=== PATIENT | female | born 1980 | race African-American/Black ===

== ENCOUNTER 2021-05-02 10:51 | Outpatient (REF) | payer OTHER, SELFPAY ==
[2021-05-02 11:05] LABS: MANUAL DIFF FLAG NO
[2021-05-02 11:12] LABS: Basophils Percent Auto 0.5 % (0-2); Eosinophils Absolute Auto 0.2 X10*3/uL (0.0-0.4); Eosinophils Percent Auto 4.2 % (0-4); Hemoglobin 9.4 g/dl (12.0-16.0); Lymphocytes Absolute Auto 1.3 X10*3/uL (1.2-4.9); Lymphocytes Percent Auto 33.9 % (20-40); Mean Corpuscular HGB Conc 30.3 g/dl (31.0-35.0); Mean Corpuscular Hemoglobin 25.5 pg (27.0-33.0); Mean Corpuscular Volume 84.2 fL (80.0-98.0); Mean Platelet Volume 8.8 fL (9.4-12.3); Monocytes Absolute Auto 0.4 X10*3/uL (0.1-1.2); Monocytes Percent Auto 11.5 % (2-11); Neutrophils Absolute Auto 1.9 x10*3/uL (2.0-8.3); Neutrophils Percent Auto 49.9 % (45-73); Platelet Count 264 X10*3/uL (160-400); Red Blood Count 3.68 X10*6/uL (4.20-5.50); Red Cell Distribution Width 14.8 % (11.0-16.0); White Blood Count 3.8 X10*3/uL (4.8-10.8)
[2021-05-02 11:55] LABS: Appearance Urine CLEAR; Color Urine YELLOW; Glucose Urine UA NEG (NEG); Leukocyte Esterase Urine NEG (NEG); Nitrite Urine NEG (NEG); UACC Culture Trigger NO; Urine Blood TRACE (NEG); Urine Ketones NEG (NEG); Urine Protein NEG (NEG-TRACE)
[2021-05-02 12:12] LABS: Alanine Aminotransferase 11 U/L (0-31); Alkaline Phosphatase 73 U/L (39-117); Anion Gap 11 (12-20); Aspartate Amino Transferase 18 U/L (5-31); Bilirubin Total 0.4 mg/dL (0.0-1.0); Blood Urea Nitrogen 7 mg/dL (9-16); Calcium 8.9 mg/dL (8.4-10.2); Carbon Dioxide 26 mmol/L (22-29); Chloride 104 mmol/L (96-108); Cholesterol 209 mg/dL; Estimated Glomerular Filt Rate > 60; Glucose Fasting 92 mg/dL (60-99); HDL Cholesterol 71 mg/dL; LDL Cholesterol Calculated 131 mg/dl; Sodium 137 mmol/L (135-145); Total Protein 7.6 g/dL (6.5-8.0); Triglycerides 39 mg/dL
[2021-05-02 12:27] LABS: Squamous Epithelial Cell Urine 1+ /LPF
[2021-05-02 12:28] LABS: WBC Urine 0-2 /HPF (0-4)
[2021-05-02 12:29] LABS: TSH reflex Free T4 0.69 uIU/mL (0.32-4.0); Vitamin D 25-OH Total 24.4 ng/mL (>30)
[2021-05-02 12:30] LABS: Bacteria Urine TRACE /LPF; RBC Urine 0 /HPF (0)
== END 2021-05-02 10:52 | disposition home or self-care (01) ==
LOC: HO.LAB 10:51
PROVIDERS: Visit Provider Internal Medicine
DX: Z00.00 Encounter for general adult medical examination without abnormal findings (principal); R10.9 Unspecified abdominal pain; E78.00 Pure hypercholesterolemia, unspecified; E55.9 Vitamin D deficiency, unspecified
CPT/HCPCS: 36415; 80053; 80061; 81001; 81003; 82306; 84443; 85025

== ENCOUNTER 2021-05-15 09:55 | Outpatient (REF) | payer OTHER, SELFPAY ==
--- NOTE | ~2021-05-15 | US_ITS ---
EXAMINATION: US PELVIS CLINICAL INFORMATION: Unspecified pain. History fibroids. COMPARISON: Pelvic ultrasound 08/19/2014. TECHNIQUE: Ultrasound of the pelvis is performed using both transabdominal and transvaginal transducers along with Doppler. Transvaginal imaging is performed due to inadequate visualization transabdominally. FINDINGS: Uterus: The uterus is anteverted and enlarged measuring 11.2 x 5.4 x 7.6 cm. Volume 239 mL. Prior measurements 9.0 x 4.0 x 5.1 cm, ultrasound 2015. Volume 94 mL. The double wall endometrial thickness is within normal, measuring 14 mm. The uterus is lobulated in contour and heterogeneous with multiple fibroids, increased in size and number from prior ultrasound 2015. The largest 3 fibroids are as follows: Fundal intramural and subserous measuring 4.4 x 4.2 cm. Right body intramural subserous measuring 3.8 x 3.3 cm. Lower uterine segment and upper cervix measuring 4.8 x 3.9 cm. In addition, there is scattered venetian blind shadowing throughout the uterus which may be associated with underlying adenomyosis. Adnexa: Both ovaries are visualized. There is normal color flow to the adnexa. There is no ovarian torsion. There is trace physiologic fluid adjacent to left ovary. No overt ascites. Right ovary measures 3.0 x 1.6 x 2.3 cm. Left ovary measures 2.5 x 1.7 x 2.0 cm. US/US pelvic complete IMPRESSION: 1. Uterine enlargement secondary to multiple fibroids, largest three are 4.8 cm, 4.4 cm, and 3.8 cm. Suspect underlying adenomyosis. 2. No adnexal mass. Trace physiologic fluid left pelvis. No overt ascites.
--- NOTE | ~2021-05-15 | US_ITS ---
EXAMINATION: US ABDOMEN COMPLETE CLINICAL INFORMATION: Unspecified abdominal pain. COMPARISON: None TECHNIQUE: Real-time imaging of the abdominal viscera. FINDINGS: PANCREAS: Normal in size and contour and echogenicity. No pancreatic ductal distention or retroperitoneal effusion. ABDOMINAL AORTA: The proximal, mid, and distal segments are normal in caliber. INFERIOR VENA CAVA: Visualized portions are normal. LIVER: Normal. The liver is normal in size. The liver contour is normal. Parenchymal echogenicity is normal. No focal hepatic lesion. There is no intrahepatic biliary duct dilatation seen. GALLBLADDER: Normal. The gallbladder is physiologically distended without evidence of stones, sludge, polyps, wall thickening or pericholecystic fluid. COMMON BILE DUCT: Normal in caliber measuring 0.3 cm in diameter. RIGHT KIDNEY: Normal. No hydronephrosis. No renal calculi or focal parenchymal lesions. The kidney measures 8.7 cm in maximum dimension. LEFT KIDNEY: Normal. No hydronephrosis. No renal calculi or focal parenchymal lesions. The kidney measures 10.7 cm in maximum dimension. SPLEEN: Normal. The spleen measures 8.7 cm in maximum dimension. FREE FLUID: None. US/US abdomen complete IMPRESSION: Normal study.
== END 2021-05-15 09:56 | disposition home or self-care (01) ==
LOC: HO.HMGCX 09:55
PROVIDERS: PCP Internal Medicine; Visit Provider Internal Medicine
DX: R10.9 Unspecified abdominal pain (principal); N85.2 Hypertrophy of uterus; D25.9 Leiomyoma of uterus, unspecified
CPT/HCPCS: 76700; 76856

== ENCOUNTER 2021-09-06 08:44 | Outpatient (REF) | payer OTHER, SELFPAY ==
[2021-09-07 02:06] LABS: CT PCR DETECTED (Not Detect.); NG PCR NOT DETECTED (Not Detect.)
[2021-09-07 09:23] LABS: BV Int Neg Control Negative (Negative); BV Int Pos Control Positive (Positive)
[2021-09-11 19:31] LABS: HPV mRNA E6/E7 rflx Not Detected (Not Detected)
== END 2021-09-06 08:45 | disposition home or self-care (01) ==
LOC: HO.LAB 08:44
PROVIDERS: Visit Provider Advanced Practice Midwife
DX: Z01.411 Encounter for gynecological examination (general) (routine) with abnormal findings (principal); Z11.51 Encounter for screening for human papillomavirus (HPV); Z20.2 Contact with and (suspected) exposure to infections with a predominantly sexual mode of transmission; N89.8 Other specified noninflammatory disorders of vagina; N85.2 Hypertrophy of uterus; Z87.42 Personal history of other diseases of the female genital tract
CPT/HCPCS: 87480; 87491; 87510; 87591; 87624; 87660; 88142

== ENCOUNTER 2021-10-10 15:31 | Outpatient (REF) | payer OTHER, SELFPAY ==
--- NOTE | ~2021-10-10 | US_ITS ---
EXAMINATION: US PELVIS CLINICAL INFORMATION: History of fibroids COMPARISON: Previous dated 05/15/2021 TECHNIQUE: Ultrasound of the pelvis is performed using both transabdominal and transvaginal transducers along with Doppler. Transvaginal imaging is performed due to inadequate visualization transabdominally. FINDINGS: UTERUS: The uterus is measuring 9.7 x 6.5 x 8.5 cm. Anteverted, anteflexed. The endometrial thickness measured by the plastic molding operator at 9 mm. Once again multiple areas of fibroid change. In the lower uterine segment posterior, there is a 4.6 x 4.5 x 4.5 cm fibroid. Previously 3.9 x 3.9 x 4.8 cm. In the mid to distal uterine region, a 3.4 x 3.6 x 3.8 cm fibroid. This is not significantly changed from previous. In the fundal region anterior, there is a 5.0 x 4.4 x 3.7 cm fibroid. Previously 4.4 x 4.2 x 4.3 cm. Other smaller areas are seen and I suspect multiple other smaller fibroids These large fibroids emanate up to the endometrial canal and therefore a submucosal component cannot be excluded The right ovary is 3.4 x 2.2 x 2.2 cm. Volume 8 mL. Unremarkable. The left ovary is 2.9 x 2.4 x 2.3 cm. Volume 8 mL. There is a small associated cyst measuring 1.5 cm. No free fluid or obvious adnexal mass. US/US pelvic and transvaginal IMPRESSION: 1. Once again findings consistent with a fibroid uterus. 2. The largest are listed above. There appears to be some increase in size of the large lower uterine body posterior fibroid 3. Mild increase of the fundal fibroid. 4. As described submucosal component of these fibroids cannot be excluded as these I believe are abutting the endometrial canal.
== END 2021-10-10 15:32 | disposition home or self-care (01) ==
LOC: HO.HMGCX 15:31
PROVIDERS: Visit Provider Advanced Practice Midwife
DX: N85.2 Hypertrophy of uterus (principal); Z87.42 Personal history of other diseases of the female genital tract
CPT/HCPCS: 76830; 76856

== ENCOUNTER → 2021-10-22 09:47 | Outpatient (BNVA) | payer OTHER, SELFPAY | PROVIDERS: Visit Provider Advanced Practice Midwife | DX: Z13.89 Encounter for screening for other disorder (principal) ==

== ENCOUNTER 2021-12-25 09:52 | Outpatient (REF) | payer OTHER, SELFPAY ==
[2021-12-26 11:51] LABS: CT PCR NOT DETECTED (Not Detect.); NG PCR NOT DETECTED (Not Detect.)
[2021-12-26 14:18] LABS: BV Int Neg Control Negative (Negative); BV Int Pos Control Positive (Positive)
== END 2021-12-25 09:53 | disposition home or self-care (01) ==
LOC: HO.LAB 09:52
PROVIDERS: Visit Provider Advanced Practice Midwife
DX: Z30.09 Encounter for other general counseling and advice on contraception (principal); Z20.2 Contact with and (suspected) exposure to infections with a predominantly sexual mode of transmission
CPT/HCPCS: 87480; 87491; 87510; 87591; 87660; 99212

== ENCOUNTER 2022-05-18 07:52 | Outpatient (REF) | payer OTHER, SELFPAY ==
[2022-05-22 03:56] LABS: Syphilis Screen Nonreactive (Nonreactive)
[2022-05-22 04:39] LABS: HBsAGNum1 0.41 S/CO (0.00-0.99); HIV AB/AG Nonreactive (Nonreactive); Hepatitis B Surface Antigen Negative (Negative); ~HepC Num1 0.13 S/CO (0.00-0.79); ~Hepatitis C Antibody Nonreactive (Nonreactive)
== END 2022-05-18 07:53 | disposition home or self-care (01) ==
LOC: HO.HMGCLDS 07:52
PROVIDERS: PCP Internal Medicine; Visit Provider Advanced Practice Midwife
DX: Z11.4 Encounter for screening for human immunodeficiency virus [HIV] (principal); N89.8 Other specified noninflammatory disorders of vagina; Z20.2 Contact with and (suspected) exposure to infections with a predominantly sexual mode of transmission
CPT/HCPCS: 36415; 86780; 86803; 87340; 87389

== ENCOUNTER 2022-06-07 08:35 | Outpatient (REF) | payer OTHER, SELFPAY ==
[2022-06-07 11:21] LABS: MANUAL DIFF FLAG NO
[2022-06-07 11:34] LABS: Basophils Percent Auto 0.7 % (0-2); Eosinophils Absolute Auto 0.1 X10*3/uL (0.0-0.4); Eosinophils Percent Auto 1.1 % (0-4); Hemoglobin 8.3 g/dl (12.0-16.0); Lymphocytes Absolute Auto 1.9 X10*3/uL (1.2-4.9); Lymphocytes Percent Auto 43.1 % (20-40); Mean Corpuscular HGB Conc 28.6 g/dl (31.0-35.0); Mean Corpuscular Hemoglobin 21.4 pg (27.0-33.0); Mean Corpuscular Volume 74.9 fL (80.0-98.0); Mean Platelet Volume 9.6 fL (9.4-12.3); Monocytes Absolute Auto 0.4 X10*3/uL (0.1-1.2); Monocytes Percent Auto 9.4 % (2-11); Neutrophils Percent Auto 45.7 % (45-73); Platelet Count 387 X10*3/uL (160-400); Red Blood Count 3.87 X10*6/uL (4.20-5.50); Red Cell Distribution Width 16.9 % (11.0-16.0); White Blood Count 4.5 X10*3/uL (4.8-10.8)
[2022-06-07 12:30] LABS: Erythrocyte Sedimentation Rate 31 MM/HR (0-20); Troponin-I High Sensitivity < 3.5 ng/L (<3.5-17.0)
[2022-06-07 13:07] LABS: Alanine Aminotransferase 9 U/L (0-31); Alkaline Phosphatase 74 U/L (39-117); Anion Gap 13 (12-20); Aspartate Amino Transferase 17 U/L (5-31); Bilirubin Total 0.7 mg/dL (0.0-1.0); Blood Urea Nitrogen 10 mg/dL (9-16); Calcium 9.1 mg/dL (8.4-10.2); Carbon Dioxide 24 mmol/L (22-29); Chloride 106 mmol/L (96-108); Cholesterol 184 mg/dL; Estimated Glomerular Filt Rate > 60; Glucose Fasting 91 mg/dL (60-99); HDL Cholesterol 77 mg/dL; LDL Cholesterol Calculated 101 mg/dl; Potassium 4.1 mmol/L (3.3-5.1); Sodium 139 mmol/L (135-145); Total Protein 7.5 g/dL (6.5-8.0); Triglycerides 31 mg/dL
[2022-06-07 13:15] LABS: TSH reflex Free T4 0.61 uIU/mL (0.32-4.0); Vitamin D 25-OH Total 18.2 ng/mL (>30)
== END 2022-06-07 08:36 | disposition home or self-care (01) ==
LOC: HO.HMGCLDS 08:35
PROVIDERS: PCP Internal Medicine; Visit Provider Internal Medicine
DX: R55 Syncope and collapse (principal); E55.9 Vitamin D deficiency, unspecified; E78.00 Pure hypercholesterolemia, unspecified
CPT/HCPCS: 36415; 80053; 80061; 82306; 84443; 84484; 85025; 85652

== ENCOUNTER 2022-07-04 07:48 | Outpatient (REF) | payer OTHER, SELFPAY ==
--- NOTE | ~2022-07-04 | CT_ITS ---
EXAMINATION: CT HEAD WITHOUT CONTRAST CLINICAL INFORMATION: Syncope. COMPARISON: None TECHNIQUE: Contiguous axial imaging was performed from the skull base to vertex without intravenous administration of contrast. This CT examination was performed using dose optimization techniques as appropriate, variously including the following: *Automated exposure control *Adjustment of mA and/or kV according to patient size (this includes techniques or standardized protocols for targeted exams where dose is matched to indication/reason for exam; i.e. extremities or head) *Use of iterative reconstruction technique DLP: 690 mGy-cm FINDINGS: There is no evidence of an extra-axial collection. There is no evidence of intra or extra-axial hemorrhage. The ventricles and extra-axial CSF spaces are appropriate. Quinones-white matter differentiation is normal. No mass, mass effect or infarct is seen. No skull fracture. Small polyps or cysts in the bilateral maxillary sinuses. Visualized paranasal sinuses, mastoid air cells and middle ears are otherwise clear. CT/CT head/brain wo IV con IMPRESSION: Unremarkable exam.
--- NOTE | 2022-07-04 08:28 | CA_ITS ---
Transthoracic Echocardiogram Patient (Last, First, Middle): Ness Palmer, Gender: Female Date of : 1980 Age: 41 Procedure Date: 07/04/2022 Procedure Type: Transthoracic Echocardiogram Location: OP Height: 152.4 cm Weight: 56.7 kg BSA: 1.53 m2 Heart Rate: bpm BP: 106 / 80 mmHg Senior Interactive Developer: LEO Referring MD: Oscar Elizalde MD Manager Membership: Ko Barr MD Symptoms: R06.09 - Other forms of dyspnea Study Quality: Adequate ECG Rhythm: Sinus Conclusions: - Essentially normal study Findings Left Ventricle Normal left ventricular size, thickness, and systolic function. The visually estimated ejection fraction is between 55-60%. Diastolic function is normal for age. Peak GLS is -181.%, within normal limits Right Ventricle Normal right ventricular cavity size and systolic function. Atria Both atria are normal in size. Interatrial shunt cannot be excluded. Aortic Valve Normal aortic valve structure and function. There is no aortic valve stenosis. There is no aortic valve regurgitation. Mitral Valve Normal mitral valve structure and function. There is trace mitral valve regurgitation. There is no mitral valve stenosis. Pulmonic Valve The pulmonic valve is likely normal. Tricuspid Valve Normal tricuspid valve structure. There is trace tricuspid valve regurgitation. The right ventricular systolic pressure is normal. The right ventricular systolic pressure is 22 mmHg. Normal right atrial pressure. There is no evidence of pulmonary hypertension. Great Vessels All visible segments of the aorta are normal in size. The pulmonary artery was not well visualized. Venous The inferior vena cava is normal in size and collapses greater than 50% with inspiration. Pericardium/Pleural There is no evidence of pericardial effusion. Prior Study Comparison No prior study available for comparison. Recommendations, Care & Conclusions Recommend contrast study to evaluate intracardiac shunting. Measurements 2D Linear Measurements IVSd: 0.83 0.6-0.9/0.6-1.0 cm LVIDd: 4.23 3.9-5.3/4.2-5.9 cm LVIDd Index: 2.76 2.4-3.2/2.2-3.1 cm/m2 LVIDs: 2.85 2.0-3.6 cm LVPWd: 0.95 0.7-1.1 cm LA Diam: 2.20 2.7-3.8/3.0-4.0 cm LAIDs Index: 1.44 1.5-2.3 cm/m2 LV Mass: 147.05 67-162/88-224 g LV Mass Index: 96.11 43-95/49-115 g/m2 LVOT Diam: 1.80 3.0+(-)1.3 cm 2D Systolic Function EF 4C: 58.80 >55% EF 2C: 58.00 >55% EF BiP: 58.30 >55% Mitral Valve MV Pk E: 0.58 MV PK A: 0.51 MV Decel Time: 190.00 E/A: 1.10 E'Lateral: 15.40 E'Medial: 11.90 E/E' Med: 4.90 E/E' Lat: 3.80 PHT: 56.00 MVA PHT: 3.93 Decel [place]: 3.04 Aortic Valve AoV Pk Vu: 1.29 AoV Mn Vu: 0.95 AoV VTI: 0.29 AoV Pk Grad: 7.00 Aov Mn Grad: 4.00 TOMMY Cont.VTI: 1.83 LVOT LVOT Pk Vu: 0.94 LVOT Mn Vu: 0.64 LVOT VTI: 0.21 LVOT Pk Grad: 4.00 LVOT Mn Grad: 2.00 LVOT Diam: 1.80 LVOT Area: 2.54 Diastolic Function MV Pk E: 0.58 MV Pk A: 0.51 E/A: 1.10 E'Medial: 11.90 E/E' Med: 4.90 E' Laterial: 15.40 E/E' Lat: 3.80 Right Ventricle TAPSE (mm): 22.80 TVS' Vu: 11.60 Tricuspid Valve TR Pk Vu: 2.19 TR Pk Grad: 19.00 RA Press: 3.00 RVSP: 22.00 Great Vessels Aorta Sinus of Valsalva: 2.93 2.0-3.[address] [place]: 2.37 1.7-3.4 cm Ao Asc: 2.50 2.1-3.4 cm Updated in Other Vendor System with Status of Final Ko Barr MD electronically signed on 07/04/2022 9:48:23 AM with status of Final
== END 2022-07-04 07:49 | disposition home or self-care (01) ==
LOC: HO.CT 07:48
PROVIDERS: Visit Provider Internal Medicine
DX: R55 Syncope and collapse (principal); R06.09 Other forms of dyspnea
CPT/HCPCS: 70450; 93306; 93356

== ENCOUNTER → 2022-10-22 14:49 | Outpatient (BNVA) | payer OTHER, SELFPAY | PROVIDERS: PCP Internal Medicine; Visit Provider Psychiatry & Neurology Neurology | DX: G47.19 Other hypersomnia (principal); R55 Syncope and collapse | CPT/HCPCS: 99202 ==

== ENCOUNTER 2022-12-10 07:56 | Outpatient (REF) | payer OTHER, SELFPAY ==
--- NOTE | 2022-12-10 07:58 | EEG_ITS ---
This is a 16-channel EEG with an EKG lead. The patient is reported awake during the tracing. Background EEG rhythm is low amplitude fast to about 14 to 16 hertz 5 to 20 microvolt posteriorly and lower amplitude fast anteriorly. Photic stimulation is not performed. Hyperventilation is unremarkable. Cardiac lead does not reveal any significant abnormality. No sharp wave spikes or paroxysmal tendency noted. IMPRESSION: Unremarkable EEG. MD VICKI Goetz/ALICE / [phone]
== END 2022-12-10 07:57 | disposition home or self-care (01) ==
LOC: HO.NEURO 07:56
PROVIDERS: PCP Internal Medicine; Visit Provider Psychiatry & Neurology Neurology
DX: R55 Syncope and collapse (principal)
CPT/HCPCS: 95816

== ENCOUNTER → 2022-12-10 10:56 | Outpatient (REF) | payer OTHER, SELFPAY | LOC: HO.SL 10:56 | PROVIDERS: PCP Internal Medicine; Visit Provider Psychiatry & Neurology Neurology | DX: G47.19 Other hypersomnia (principal) | CPT/HCPCS: 95806 ==

== ENCOUNTER → 2022-12-10 11:11 | Outpatient (BNV) | payer OTHER, SELFPAY | PROVIDERS: PCP Internal Medicine; Visit Provider Psychiatry & Neurology Neurology | DX: G47.10 Hypersomnia, unspecified (principal); R06.83 Snoring | CPT/HCPCS: 95806 ==

== ENCOUNTER 2022-12-16 07:11 | Outpatient (REF) | payer OTHER, SELFPAY ==
[2022-12-16 11:56] LABS: Basophils Percent Auto 0.5 % (0-2); Eosinophils Absolute Auto 0.1 X10*3/uL (0.0-0.4); Eosinophils Percent Auto 1.2 % (0-4); Hematocrit 38.9 % (37.0-47.0); Hemoglobin 12.5 g/dl (12.0-16.0); Lymphocytes Absolute Auto 2.7 X10*3/uL (1.2-4.9); Lymphocytes Percent Auto 62.4 % (20-40); Mean Corpuscular HGB Conc 32.1 g/dl (31.0-35.0); Mean Corpuscular Hemoglobin 30.8 pg (27.0-33.0); Mean Corpuscular Volume 95.8 fL (80.0-98.0); Mean Platelet Volume 10.3 fL (9.4-12.3); Monocytes Absolute Auto 0.4 X10*3/uL (0.1-1.2); Monocytes Percent Auto 8.8 % (2-11); Neutrophils Absolute Auto 1.2 x10*3/uL (2.0-8.3); Neutrophils Percent Auto 27.1 % (45-73); Platelet Count 233 X10*3/uL (160-400); Red Blood Count 4.06 X10*6/uL (4.20-5.50); Red Cell Distribution Width 11.6 % (11.0-16.0); White Blood Count 4.3 X10*3/uL (4.8-10.8)
[2022-12-16 11:58] LABS: MANUAL DIFF FLAG SCAN
[2022-12-16 12:21] LABS: Alanine Aminotransferase 9 U/L (0-31); Albumin Level 3.8 g/dL (3.5-5.0); Alkaline Phosphatase 62 U/L (39-117); Anion Gap 14 (12-20); Aspartate Amino Transferase 15 U/L (5-31); Bilirubin Total 0.6 mg/dL (0.0-1.0); Blood Urea Nitrogen 8 mg/dL (9-16); Calcium 9.2 mg/dL (8.4-10.2); Carbon Dioxide 25 mmol/L (22-29); Chloride 106 mmol/L (96-108); Estimated Glomerular Filt Rate > 60; Glucose Random 91 mg/dL (60-115); Iron 61 mcg/dL (30-160); Percent Iron Saturation 23 % (15-50); Sodium 141 mmol/L (135-145); Total Iron Binding Capacity 264 mcg/dL (228-428); Total Protein 7.2 g/dL (6.5-8.0); Unsaturated Iron Binding 203 ug/dL
[2022-12-16 12:23] LABS: SLIDE REVIEW VERIFIED
== END 2022-12-16 07:12 | disposition home or self-care (01) ==
LOC: HO.HMGCLDS 07:11
PROVIDERS: PCP Internal Medicine; Visit Provider Internal Medicine
DX: D50.9 Iron deficiency anemia, unspecified (principal); I10 Essential (primary) hypertension
CPT/HCPCS: 36415; 80053; 83540; 85025

== ENCOUNTER 2022-12-18 16:28 | Outpatient (AMB) | payer OTHER, SELFPAY ==
--- NOTE | 2022-12-18 16:31 | MHC.PC.OV ---
Vital Signs 12/18/22 16:33 Height 5 ft Weight 121 lb BMI 23.6 BP 130/70 Blood Pressure Location Lt brachial Position Sitting Pulse 70 Pulse Source Pulse Oximeter Pulse Oximetry (%) 98 Oxygen Delivery Method Room Air Intake Visit Reasons: 3 MONTH F/U Intake Note: Patient is here to follow up on Asthma, Vit D deficiency, Anemia. Highway Landscape Architect Required: No Content Development Manager: Not Required per policy Accompanied by: Self / Same As Patient Allergies environmental allergies Allergy (Unknown, Verified 12/18/22 16:49) Unknown Seasonal Allergies Allergy (Unknown, Verified 12/18/22 16:49) Unknown Medication List - Last Reconciled 12/18/22 by Oscar Elizalde MD cholecalciferol (vitamin D3) 50 mcg PO DAILY 90 days ferrous sulfate 325 mg PO DAILY 90 days Tobacco use date assessed: 12/18/22 Dental Screening Dental Screen Date: 12/18/22 Did you have a dental visit in the last 12 months?: Yes Did you have a dental problem in the last 6 months where you did not have access to dental care?: No Was dental information given to patient?: Patient has dentist HPI 3 MONTH F/U HPI Details Patient comes in today for her follow up visit States that she feels okay She denies any headaches; still has occasional brief dizzy spells but states that they occur very rarely and are much milder than they were in the past Has not had any further syncopal episodes since her last visit a few months ago She denies any chest pains, no SOB No nausea/vomiting, no abdominal pain No change in bowel habits noted Had her follow up labs done a few days ago - to discuss her results [facility] Medical History Allergic rhinitis Asthma Excessive daytime sleepiness Vitamin D deficiency Surgical History History of incision and drainage History of wisdom tooth extraction Family History Father No problems noted. Mother Cervical cancer Ovarian cancer Hypertension Stroke Maternal Grandmother Ovarian cancer Paternal Grandfather Diabetes Son Asthma Social History Housing: House Alcohol intake: current Alcohol intake frequency: holidays/special occasions only Alcohol type: wine Patient Tobacco Use Status: Never used Tobacco e-Cigarette/Vaping Use: Never Used Second Hand Smoke Exposure: No service: No Current occupational status: employed Cognitive needs: No Hearing needs: No Vision needs: No Female Reproductive History Menstrual Age of Menarche: 13 Questionnaire Thrive Questionnaire Date Thrive assessed: 06/05/22 JOI-7 AMB Questionnaire JOI-7 Date JOI - 7 assessed: 06/05/22 Source: Developed by Drs. Jasson Hernadnez, Laura Telles, Carroll Gruber and colleagues, with an educational olvin from [employer]. Review of Systems Const Reports fatigue, Denies fever(s) and Denies headache(s) ENT Denies dysphagia, Reports dizziness (occasional, brief; occurring much less than before), Denies headache(s), Denies nasal congestion, Denies odynophagia, Denies sinus pain and Denies sore throat Card Denies chest pain, Denies syncope (isolated event in April 2022 with NO recurrence since), Denies palpitations and Denies dyspnea Resp Denies cough and Denies dyspnea GI Denies abdominal pain, Denies constipation, Denies dysphagia, Denies heartburn, Denies diarrhea, Denies nausea, Denies odynophagia and Denies vomiting Denies difficulty voiding, Denies nocturia and Denies dysuria Skin/Breast Denies rash Neuro Reports dizziness (occasional, brief; occurring much less than before), Denies syncope (isolated event in April 2022 with NO recurrence since) and Denies headache(s) Endo Reports fatigue and Denies palpitations Physical exam (Primary Care) Vital Signs: Last Vital Signs Pulse 70 12/18/22 16:33 BP 130/70 12/18/22 16:33 Pulse Ox 98 12/18/22 16:33 Oxygen Delivery Method Room Air 12/18/22 16:33 BMI result Body Mass Index 23.6 Tobacco/Smoking Status: Tobacco use Status Tobacco use date assessed 12/18/22 12/18/22 16:37 Patient Tobacco Use Status Never used Tobacco 12/18/22 16:37 e-Cigarette/Vaping Use Never Used 12/18/22 16:37 Thrive Assessment: Date of Thrive Assessment Date Thrive assessed 01/18/23 08/02/23 16:37 Const General: no acute distress and alert Orientation/consciousness: patient oriented x3 HENMT Ears: TM's normal bilaterally and EAC's normal Throat: Yes posterior oropharynx normal and Yes tonsils normal (no TP congestion) Neck Neck: Yes no lymphadenopathy and Yes supple Resp Auscultation: clear to auscultation bilaterally, no rales and no wheezes Cardio Rate: regular rate Rhythm: regular rhythm Heart sounds: no murmurs GI Palpation (GI): Soft to palpation and nontender Auscultation: normal bowel sounds Skin Rashes: no rashes Neuro General: patient oriented x3 and no focal motor deficits Extrem General: Yes no clubbing, cyanosis or edema Results Reviewed Results Reviewed: Laboratory Tests 12/16/22 12/16/22 07:18 07:18 WBC 4.3 L Hgb 12.5 D Hct 38.9 D Plt Count 233 D Sodium 141 Potassium 4.0 Creatinine 0.79 Estimated GFR > 60 Random Glucose 91 Calcium 9.2 AST 15 ALT 9 Laboratory Tests 12/16/22 07:18 Iron 61 TIBC 264 % Saturation 23 Total Bilirubin 0.6 Alkaline Phosphatase 62 Assessment and Plan Assessment & Plan (1) Syncope: Comment: ? sleep attack, syncope? cataplexy Code(s): R55 - Syncope and collapse Qualifiers: Syncope type: unspecified Qualified Code(s): R55 - Syncope and collapse Plan: NO recurrence since isolated incident in April 2022; was most likely related to her significant anemia Her head CT and echocardiogram both came back normal She was referred to neurology for further evaluation - was seen in October 2022 and she is currently scheduled for EEG and a sleep study for further evaluation Have advised patient to get these done to complete her evaluation and if these come back normal, then we should have no further concerns regarding her syncopal episode that occurred late last year (2) Iron deficiency anemia: Code(s): D50.9 - Iron deficiency anemia, unspecified Qualifiers: Iron deficiency anemia type: unspecified iron deficiency Qualified Code(s): D50.9 - Iron deficiency anemia, unspecified Plan: Was most likely the main reason for her previous syncopal episode Results of her labs done a couple of days ago reviewed and discussed with patient - reassured that her anemia has improved with iron supplements and is now corrected Continue Ferrous Sulfate 325 mg QD Will recheck her labs and CBC in 6 months for follow up (3) Vitamin D deficiency: Code(s): E55.9 - Vitamin D deficiency, unspecified Plan: Corrected; continue Vitamin D3 2000 units QD Plan To return in 6 months for her next annual physical examination Orders: Orders Comprehensive [place]. Panel Fast 6 Months E78.00 - Pure hypercholesterolemia, unspecified, Z00.00 - Encounter for general adult medical examination without abnormal findings Complete Blood Count Auto Diff 6 Months D50.9 - Iron deficiency anemia, unspecified, Z00.00 - Encounter for general adult medical examination without abnormal findings Lipid Panel 6 Months E78.00 - Pure hypercholesterolemia, unspecified, Z00.00 - Encounter for general adult medical examination without abnormal findings TSH reflex Free T4 6 Months E78.00 - Pure hypercholesterolemia, unspecified, Z00.00 - Encounter for general adult medical examination without abnormal findings UA CC w/rflx Micro + Cult 6 Months R30.0 - Dysuria, Z00.00 - Encounter for general adult medical examination without abnormal findings Vitamin D 25-OH Total 6 Months E55.9 - Vitamin D deficiency, unspecified, Z00.00 - Encounter for general adult medical examination without abnormal findings Medications: Refilled ferrous sulfate 325 mg PO DAILY 90 days 90 tabs 1RF Coding Level of Care Code Est Pt Level 3 (06497) Diagnoses Syncope R55 Syncope type: unspecified Iron deficiency anemia D50.9 Iron deficiency anemia type: unspecified iron deficiency Vitamin D deficiency E55.9
[2022-12-18 16:33] VITALS: BP 130/70; PULSE 70; O2SAT 98; BMI 23.6
== END 2022-12-18 17:00 | disposition home or self-care (01) ==
PROVIDERS: PCP Internal Medicine; Visit Provider Internal Medicine
DX: R55 Syncope and collapse (principal); D50.9 Iron deficiency anemia, unspecified; E55.9 Vitamin D deficiency, unspecified
CPT/HCPCS: 99213

== ENCOUNTER → 2023-01-19 20:30 | Outpatient (REF) | payer OTHER, SELFPAY | LOC: HO.SL 20:30 | PROVIDERS: PCP Internal Medicine; Visit Provider Nurse Practitioner Family | DX: G47.19 Other hypersomnia (principal); R55 Syncope and collapse; R53.83 Other fatigue | CPT/HCPCS: 95810 ==

== ENCOUNTER → 2023-01-19 22:32 | Outpatient (BNV) | payer OTHER, SELFPAY | PROVIDERS: PCP Internal Medicine; Visit Provider Psychiatry & Neurology Neurology | DX: G47.19 Other hypersomnia (principal) | CPT/HCPCS: 95810 ==

== ENCOUNTER 2023-01-24 13:32 | Outpatient (AMB) | payer OTHER, SELFPAY ==
--- NOTE | 2023-01-24 13:35 | A.OFFVIS_ITS ---
Intake Vital Signs 01/24/23 13:37 Height 5 ft Weight 117 lb 8 oz BMI 22.9 BP 110/90 H Blood Pressure Location Lt brachial Position Sitting Pulse 90 Pulse Source Pulse Oximeter Pulse Oximetry (%) 99 Oxygen Delivery Method Room Air Intake Visit Reasons: 2month-Syncope/Collapse-lvm Intake Note: Pt presents today for fup after collapse no further issues Allergies environmental allergies Allergy (Unknown, Verified 01/24/23 13:40) Unknown Seasonal Allergies Allergy (Unknown, Verified 01/24/23 13:40) Unknown Medication List - Last Reconciled 01/24/23 by Hina Tineo MD cholecalciferol (vitamin D3) 50 mcg PO DAILY 90 days ferrous sulfate 325 mg PO DAILY 90 days HPI HPI Comments History of Present Illness Details 42y/o female with anemia, low blood pres sure comes for follow up.SHe is on iron and Vit D supplementation and is feeling much better. SHe feels more awake and less tired Home sleep test was inconclusive , EEG was normal . she had an in lab study few days ago.leg cramps better with iron supplementation. Previous history- In Apr 2022 ( about 6 mths ago ) she had an episode of passing out. She was visiting a friend - around 6 pm she was standing and conversing( laughing) with her friend and suddenly heard ringing noise, blurry vision and passed out. No witnessed movements or tongue biting or incontinence.It lasted few minutes, she felt like she woke up from a deep sleep . she also felt like she was dreaming. According to her friend her eyes were wide open when she passed out. she has chronic fatigue and weak even as child. she had a similar episode 2 years ago- at work she had a feeling of ringing but did not pass out. she felt weightless. SHe sleeps good. she had occasional difficulty moving when she wakes up in the morning. she denies snoring. she does not take naps . she has occasional palpitations. No hallucinations. No h/o narcolepsy or seizures. [facility] Medical History Excessive daytime sleepiness Allergic rhinitis Vitamin D deficiency Asthma Surgical History History of incision and drainage History of wisdom tooth extraction Family History Father No problems noted. Mother Cervical cancer Ovarian cancer Hypertension Stroke Maternal Grandmother Ovarian cancer Paternal Grandfather Diabetes Son Asthma Social History Housing: House Alcohol intake: current Alcohol intake frequency: holidays/special occasions only Alcohol type: wine Patient Tobacco Use Status: Never used Tobacco e-Cigarette/Vaping Use: Never Used Second Hand Smoke Exposure: No service: No Current occupational status: employed Cognitive needs: No Hearing needs: No Vision needs: No Female Reproductive History Menstrual Age of Menarche: 13 Physical Exam Vital Signs: Last Vital Signs Pulse 90 01/24/23 13:37 BP 110/90 H 01/24/23 13:37 Pulse Ox 99 01/24/23 13:37 Oxygen Delivery Method Room Air 01/24/23 13:37 BMI result Body Mass Index 22.9 Const General: cooperative, healthy appearing and comfortable Nutritional Appearance: average body habitus Orientation/consciousness: patient oriented x3 Limitations: no limitations Eyes Pupils: Equal, round and reactive pupils present Neuro General: patient oriented x3, tone normal, moves all extremities and no focal motor deficits Cranial nerves: Yes Facial sensation intact/muscles of mastication intact, Yes Equal, round and reactive pupils present, Yes Bilaterally intact EOM present, Yes Nystagmus not present, Yes Normal facial strength present, Yes Midline tongue present and Yes Symmetric palate elevation present Cognition (Neuro): normal cognition Gait exam (Neuro): Normal gait present Motor exam (neuro): 5/5 motor strength present throughout and Normal motor muscle tone present throughout Coordination: [id number] test normal Assessment & Plan Assessment & Plan (1) Excessive daytime sleepiness: Comment: likely related to anemia, low vit D Code(s): G47.19 - Other hypersomnia Plan Improved with Vit D and iron supplementation continue Iron 325mg qd and Vit D 2000U qam Medications: Refilled cholecalciferol (vitamin D3) 50 mcg PO DAILY 90 days 90 caps 3RF E55.9 - Vitamin D deficiency, unspecified ferrous sulfate 325 mg PO DAILY 90 days 90 tabs 1RF Coding Level of Care Code Est Pt Level 4 (65792) Diagnoses Excessive daytime sleepiness G47.19
[2023-01-24 13:37] VITALS: BP 110/90; PULSE 90; O2SAT 99; BMI 22.9
== END 2023-01-24 13:58 | disposition home or self-care (01) ==
PROVIDERS: PCP Internal Medicine; Visit Provider Psychiatry & Neurology Neurology
DX: G47.19 Other hypersomnia (principal)
CPT/HCPCS: 99214

== ENCOUNTER → 2023-01-24 13:32 | Outpatient (BNVA) | payer OTHER, SELFPAY | PROVIDERS: PCP Internal Medicine; Visit Provider Psychiatry & Neurology Neurology | DX: G47.19 Other hypersomnia (principal) | CPT/HCPCS: 99212 ==

== ENCOUNTER 2023-03-19 09:03 | Outpatient (REF) | payer OTHER, SELFPAY ==
[2023-03-19 10:53] LABS: Hematocrit 39.3 % (37.0-47.0); Hemoglobin 13.1 g/dl (12.0-16.0); Mean Corpuscular HGB Conc 33.3 g/dl (31.0-35.0); Mean Corpuscular Hemoglobin 31.7 pg (27.0-33.0); Mean Corpuscular Volume 95.2 fL (80.0-98.0); Mean Platelet Volume 9.4 fL (9.4-12.3); Platelet Count 229 X10*3/uL (160-400); Red Blood Count 4.13 X10*6/uL (4.20-5.50); White Blood Count 5.1 X10*3/uL (4.8-10.8)
[2023-03-19 11:41] LABS: Syphilis Screen Nonreactive (Nonreactive)
[2023-03-19 11:52] LABS: HBsAGNum1 0.34 S/CO (0.00-0.99); HIV AB/AG Nonreactive (Nonreactive); HIV Num 1 0.05 S/CO (0.00-0.99); Hepatitis B Surface Antigen Negative (Negative); ~HepC Num1 0.08 S/CO (0.00-0.79); ~Hepatitis C Antibody Nonreactive (Nonreactive)
[2023-03-19 14:09] LABS: CT PCR NOT DETECTED (Not Detect.); NG PCR NOT DETECTED (Not Detect.)
[2023-03-20 13:55] LABS: BV Int Neg Control Negative (Negative); BV Int Pos Control Positive (Positive)
== END 2023-03-19 09:04 | disposition home or self-care (01) ==
LOC: HO.LAB 09:03
PROVIDERS: PCP Internal Medicine; Visit Provider Advanced Practice Midwife
DX: Z01.411 Encounter for gynecological examination (general) (routine) with abnormal findings (principal); D25.9 Leiomyoma of uterus, unspecified; N89.8 Other specified noninflammatory disorders of vagina; N85.2 Hypertrophy of uterus; D50.9 Iron deficiency anemia, unspecified; Z87.42 Personal history of other diseases of the female genital tract; Z20.2 Contact with and (suspected) exposure to infections with a predominantly sexual mode of transmission
CPT/HCPCS: 0353U; 85027; 86780; 86803; 87340; 87389; 87480; 87510; 87660; 99396

== ENCOUNTER 2023-03-19 09:03 | Outpatient (AMB) | payer OTHER, SELFPAY ==
--- NOTE | 2023-03-19 09:07 | A.OFFVIS_ITS ---
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 She is feeling great. She occasionally has sex not very often but she uses condoms though 1 did break she gets regular periods she says they are shorter than they used to be the very heavy for 3 days and then they stop and then they come very light for another couple of days. She fainted last year and went and got checked and it turns out she was very anemic and she is on iron now and she feels great. She is also on vitamin-D. She knows she will be starting mammograms she is flying back and forth between here in [employer] lot with her business and she also went to [facility] this year for her birthday and will be going to [place] next week. She does note a discharge which she thinks is heavy but it has no smell but she wears panty liners all the time. She does Pilates and yoga for exercise. [facility] Medical History Excessive daytime sleepiness Allergic rhinitis Vitamin D deficiency Asthma Surgical History History of incision and drainage History of wisdom tooth extraction Family History Father No problems noted. 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 Sexual orientation: Straight/Heterosexual Gender identity: Female Cognitive needs: No Hearing needs: No Vision needs: No Female Reproductive History Menstrual Age of Menarche: 13 Duration of menses: 3-5 days Date of last menstrual period: 03/03/23 control method: none and condoms Total pregnancies: 3 Full term: 1 Number of Living Children: 1 Ab spontaneous: 2 Date of last pap smear: 09/07/21 History of abnormal pap smear: Yes ([place] 2012) History of STI: Yes Physical Exam Vital Signs: Last Vital Signs BP 118/74 03/19/23 09:08 BMI result Body Mass Index 22.5 Const General: healthy appearing, comfortable, no acute distress, well developed and alert Nutritional Appearance: average body habitus Orientation/consciousness: patient oriented x3 Limitations: no limitations HEENT Head: Yes normocephalic Neck Neck: Yes normal visual inspection Chest Chest palpation & inspection: normal inspection of the chest Breast/axilla inspection: normal inspection of the breasts and normal inspection of the axillae Breast/axilla palpation: normal palpation of the breasts and normal palpation of the axillae Resp Effort & Inspection: normal respiratory effort GI Inspection: Yes normal to inspection, No Abdominal wall edema and No distended Palpation (GI): Soft to palpation and nontender Other: Speculum exam is completely within normal limits cervix is extremely posterior and difficult to visualize vaginal discharge is white and flocculent her consistent with luteal phase of cycle and completely normal appearing uterus is enlarged and firm consistent with her history of fibroids uterus is directly situated with fundus anterior and cervix directly posterior it is nontender mobile good tone with Kegel adnexa not enlarged. General: Yes bladder normal to palpation External Female Exam: normal external appearance and normal appearance of the urethra Speculum Exam - Vagina: normal appearance of the vagina, normal palpation and normal vaginal discharge Speculum Exam - Cervix: normal appearance of the cervix, normal palpation and nontender Bimanual exam- vagina & uterus: normal bimanual exam, normal palpation, uterine size normal, bladder normal to palpation, normal palpation, uterine mobility normal, No Cervical tenderness present, non-tender and no cervical motion tenderness Bimanual Exam- Adnexa, other: normal adnexae, no masses, normal and No adnexal tenderness Neuro General: patient oriented x3 Results Reviewed Results Reviewed: Patient: Ness Palmer MR#: [id number] : 1980 Acct:[id number] Age/Sex: 40 / F ADM Date: 10/10/21 Loc: HO.[facility]GCX Attending Dr: Ramonita Maya CNM Ordering Physician: Ramonita Maya CNM Date of Service: 10/10/21 Procedure(s): US pelvic and transvaginal Accession Number(s): [id number] cc: Ramonita Maya CNM~ EXAMINATION: US PELVIS CLINICAL INFORMATION: History of fibroids COMPARISON: Previous dated 05/15/2021 TECHNIQUE: Ultrasound of the pelvis is performed using both transabdominal and transvaginal transducers along with Doppler. Transvaginal imaging is performed due to inadequate visualization transabdominally. FINDINGS: UTERUS: The uterus is measuring 9.7 x 6.5 x 8.5 cm. Anteverted, anteflexed. The endometrial thickness measured by the transport nurse at 9 mm. Once again multiple areas of fibroid change. In the lower uterine segment posterior, there is a 4.6 x 4.5 x 4.5 cm fibroid. Previously 3.9 x 3.9 x 4.8 cm. In the mid to distal uterine region, a 3.4 x 3.6 x 3.8 cm fibroid. This is not significantly changed from previous. In the fundal region anterior, there is a 5.0 x 4.4 x 3.7 cm fibroid. Previously 4.4 x 4.2 x 4.3 cm. Other smaller areas are seen and I suspect multiple other smaller fibroids These large fibroids emanate up to the endometrial canal and therefore a submucosal component cannot be excluded The right ovary is 3.4 x 2.2 x 2.2 cm. Volume 8 mL. Unremarkable. The left ovary is 2.9 x 2.4 x 2.3 cm. Volume 8 mL. There is a small associated cyst measuring 1.5 cm. No free fluid or obvious adnexal mass. US/US pelvic and transvaginal IMPRESSION: 1. Once again findings consistent with a fibroid uterus. 2. The largest are listed above. There appears to be some increase in size of the large lower uterine body posterior fibroid 3. Mild increase of the fundal fibroid. 4. As described submucosal component of these fibroids cannot be excluded as these I believe are abutting the endometrial canal. Dictated By: Devin Figueroa MD Signed By: <Electronically signed by Devin Figueroa MD in OV> 10/11/21 1459 DD/ 1555 TD/TT: Name: Ness Palmer Age/Sex: 40/F Attending: Ramonita Maya CNM : 1980 Submitted by: Ramonita Maya CNM Copies to: MR #: [id number] Status: DEP REF Collected: 09/06/21 Location: .LAB Received: 09/07/21 Interpretation Satisfactory for evaluation. Mild inflammation. Negative for intraepithelial lesion or malignancy. HPV mRNA E6/E7: NOT DETECTED This assay detects E6/E7 viral messenger RNA (mRNA) from 14 high-risk HPV types (16, 18, 31, 33, 35, 39, 45, 51, 52, 56, 58, 59, 66, 68) HPV testing performed by [facility], [place], [place]. See reference laboratory pion of the EMR for entire report. Clinical Information LMP: 08/10/21 Previous PAP test: 2019, WNL Other history: 2013, ANISH I Material Received ThinPrep-Cervical Electronically Signed By: RAYA Inman (ASCP) 09/12/21 0822 The Pap Test is a screening procedure with the inherent possibility of both false negative and false positive results. Results should be interpreted in the context of historic and current clinical findings. Reliability of the Pap Test is enhanced by performing the test on a regular repetitive basis. Patient: Ness Palmer Age/Sex: 40/F MR#: [id number] Page 1 of 1 Assessment & Plan Assessment & Plan (1) Iron deficiency anemia: Code(s): D50.9 - Iron deficiency anemia, unspecified Qualifiers: Iron deficiency anemia type: unspecified iron deficiency Qualified Code(s): D50.9 - Iron deficiency anemia, unspecified (2) control counseling: Code(s): Z30.09 - Encounter for other general counseling and advice on contraception (3) Fibroid uterus: Code(s): D25.9 - Leiomyoma of uterus, unspecified (4) Problematic vaginal discharge: Code(s): N89.8 - Other specified noninflammatory disorders of vagina (5) Potential exposure to STD: Code(s): Z20.2 - Contact with and (suspected) exposure to infections with a predominantly sexual mode of transmission (6) Bulky or enlarged uterus: Code(s): N85.2 - Hypertrophy of uterus (7) Well woman exam with routine gynecological exam: Code(s): Z01.419 - Encounter for gynecological examination (general) (routine) without abnormal findings (8) Hx of abnormal cervical Pap smear: Comment: 2013, ?2018, ; 2019 neg;/09/06/21 pap= neg, neg hpv. Code(s): Z87.42 - Personal history of other diseases of the female genital tract Plan -----Discussed in this visit the following: healthy balanced diet, regular and consistent exercise, getting recommended health screens, doing the best she can for her particular health concerns, kegel exercises, pap smear screening and followup recommendations, mammography screening and SBE, normal changes in cycles in her life stage--- . Discussed normal cycles and I urged her to actually keep track of her cycles and start to pay attention to the cyclic changes that do occur with vaginal discharge and discussed the panty liners allow for increased awareness of discharge that otherwise does not accumulate and dissipates more regularly. Education done about this. Also offered pelvic ultrasound but she is not having any issues that she is concerned about discussed that any time she does have increased bleeding or more pain or anything we can investigate to see if the fibroids have grown or anything with another ultrasound. She is content with condoms for now discussed that Gardnerella can be a normal finding and if it shows up she only needs to treated if it is symptomatic to her. Offered full testing for STIs and she accepted . Will order mammogram as well it is time to start screening. Also discussed of her periods became very heavy or unmanageable that sometimes hormonal methods can be considered for instance a Mirena IU S however she has never used hormones and probably would not like how she feels on them. Will order CBC as well to check on the anemia she is feeling so much better since she started with the iron in it is not causing any problems for her so she is happy to manage things that way. Discussed that the fibroids definitely could contribute to heavier periods. For now she is content with things how they are. Since her last 2 Paps were normal Pap was deferred for this year. Orders: Orders CT NG by PCR Today Z20.2 - Contact with and (suspected) exposure to infections with a predominantly sexual mode of transmission Bacterial Vaginosis Panel Today Z20.2 - Contact with and (suspected) exposure to infections with a predominantly sexual mode of transmission Hepatitis B Surface Antigen Today D50.9 - Iron deficiency anemia, unspecified, Z20.2 - Contact with and (suspected) exposure to infections with a predominantly sexual mode of transmission Hepatitis C Antibody Today D50.9 - Iron deficiency anemia, unspecified, Z20.2 - Contact with and (suspected) exposure to infections with a predominantly sexual mode of transmission Syphilis Screen Today D50.9 - Iron deficiency anemia, unspecified, Z20.2 - Contact with and (suspected) exposure to infections with a predominantly sexual mode of transmission HIV Ab/Ag Today D50.9 - Iron deficiency anemia, unspecified, Z20.2 - Contact with and (suspected) exposure to infections with a predominantly sexual mode of transmission Complete Blood Count no Diff Today D50.9 - Iron deficiency anemia, unspecified, Z20.2 - Contact with and (suspected) exposure to infections with a predominantly sexual mode of transmission MM tomosynthesis screening BI Today Z12.31 - Encounter for screening mammogram for malignant neoplasm of breast Coding Level of Care Code Est Pt Prev Care 40-64y([id number]) Diagnoses Iron deficiency anemia, unspecified iron deficiency anemia type D50.9 Iron deficiency anemia type: unspecified iron deficiency control counseling Z30.09 Fibroid uterus D25.9 Problematic vaginal discharge N89.8 Potential exposure to STD Z20.2 Bulky or enlarged uterus N85.2 Well woman exam with routine gynecological exam Z01.419 Hx of abnormal cervical Pap smear Z87.42
[2023-03-19 09:08] VITALS: BP 118/74; BMI 22.5
== END 2023-03-19 10:04 | disposition home or self-care (01) ==
PROVIDERS: Visit Provider Advanced Practice Midwife
DX: Z01.419 Encounter for gynecological examination (general) (routine) without abnormal findings (principal); D50.9 Iron deficiency anemia, unspecified; Z30.09 Encounter for other general counseling and advice on contraception; D25.9 Leiomyoma of uterus, unspecified; N89.8 Other specified noninflammatory disorders of vagina; Z20.2 Contact with and (suspected) exposure to infections with a predominantly sexual mode of transmission; N85.2 Hypertrophy of uterus; Z87.42 Personal history of other diseases of the female genital tract
CPT/HCPCS: 99396

== ENCOUNTER 2023-04-22 09:27 | Outpatient (REF) | payer SELFPAY ==
--- NOTE | ~2023-04-22 | MM_ITS ---
EXAMINATION: MM SCREENING DIGITAL BREAST TOMOSYNTHESIS, BILATERAL CLINICAL INFORMATION: Screening. Asymptomatic. COMPARISON: Mammography: This study is compared with prior exams dating back to 2011. There are no interval mammograms for comparison. TECHNIQUE: Digital breast tomosynthesis is performed in both the craniocaudal and mediolateral oblique views along with computer-aided detection (CAD). Synthesized 2D images are generated from the tomosynthesis. FINDINGS: The breasts are heterogeneously dense, which may obscure small masses (ACR BI-RADS breast composition Category c). There are no significant masses, abnormal calcifications, or other abnormalities. MM/MM tomosynthesis screening BI IMPRESSION: No mammographic evidence of malignancy. ASSESSMENT: BI-RADS BI-RADS 1 - Negative RECOMMENDATION: Routine annual mammography screening. 1 year F/U This examination should not preclude the clinical evaluation of a suspicious palpable abnormality. This patient's information was entered into a reminder system with a target due date for their next mammogram.
== END 2023-04-22 09:28 | disposition home or self-care (01) ==
LOC: HO.MAMMO 09:27
PROVIDERS: PCP Internal Medicine; Visit Provider Advanced Practice Midwife
DX: Z12.31 Encounter for screening mammogram for malignant neoplasm of breast (principal)
CPT/HCPCS: 77063; 77067

== ENCOUNTER → 2023-04-22 09:45 | Outpatient (BNV) | payer SELFPAY | PROVIDERS: PCP Internal Medicine; Visit Provider Radiology Diagnostic Radiology | DX: Z12.31 Encounter for screening mammogram for malignant neoplasm of breast (principal) | CPT/HCPCS: 77063; 77067 ==

== ENCOUNTER 2023-06-23 16:12 | Outpatient (AMB) | payer SELFPAY ==
--- NOTE | 2023-06-23 16:16 | MHC.PC.OV ---
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 Accompanied by: Self / Same As Patient Allergies environmental allergies Allergy (Unknown, Verified 06/23/23 16:54) Unknown Seasonal Allergies Allergy (Unknown, Verified 06/23/23 16:54) Unknown Medication List - Last Reconciled 06/23/23 by Oscar Elizalde MD cholecalciferol (vitamin D3) 50 mcg PO DAILY 90 days ferrous sulfate 325 mg PO DAILY 90 days Tobacco use date assessed: 06/23/23 Dental Screening Dental Screen Date: 06/23/23 Did you have a dental visit in the last 12 months?: Yes Did you have a dental problem in the last 6 months where you did not have access to dental care?: No Was dental information given to patient?: Patient has dentist HPI pe HPI Details Patient comes in today for her annual physical examination States that she feels well She denies any headaches or dizziness Denies any chest pains, no shortness of breath No nausea /vomiting, no abdominal pain No change in bowel habits noted Denies any acute urinary symptoms She is up-to-date with her annual pap smear and gynecologic exam (last done in March 2023) and screening mammogram (done in April 2023) [facility] Medical History Excessive daytime sleepiness Allergic rhinitis Vitamin D deficiency Asthma Surgical History History of incision and drainage History of wisdom tooth extraction Family History Father No problems noted. 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 1. Little interest or pleasure in doing things: not at all 2. Feeling down, depressed, or hopeless: not at all 3. Trouble falling or staying asleep, or sleeping too much: not at all 4. Feeling tired or having little energy: not at all 5. Poor appetite or overeating: not at all 6. Feeling bad about yourself - or that you are a failure or have let yourself or your family down: not at all 7. Trouble concentrating on things, such as reading the newspaper or watching television: not at all 8. Moving or speaking so slowly that other people could have noticed. Or the opposite - being so fidgety or restless that you have been moving around a lot more than usual: not at all 9. Thoughts that you would be better off or of hurting yourself in some way: not at all Total score: 0 Depression Screening Interpretation: Negative Depression Screening Done: Yes 51097 - PHQ-9 Billing: Yes Source: Developed by Drs. Jasson Hernandez, Laura Telles, Carroll Gruber and colleagues, with an educational olvin from [employer]. Thrive Questionnaire Date Thrive assessed: 06/23/23 I am a: Patient What is your living situation today?: I have a steady place to live Within the past 12 months, did the food you bought not last and you didn't have the money to get more?: Never true Within the past 12 months, did you worry whether your food would run out before you got money to buy more?: Never true Do you have trouble paying for medicines?: No Do you have trouble getting transportation to medical appointments?: No Do you have trouble paying your heating and electricity bill?: No Do you have trouble taking care of your child, family member or friend?: No Do you have trouble with day-to-day activities such as bathing, preparing meals, shopping, managing finances, etc.?: No Are you currently unemployed and looking for a job?: No Are you interested in more education?: No Please select the resources that you would like help with: None Currently or been in a relationship where the following occur: no concerns reported THRIVE Score: 0 AUDIT C Alcohol Use Questionnaire (AUDIT-C) 1. How often do you have a drink containing alcohol?: Never 3. How often do you have six or more drinks on one occasion?: Never Total Score: 0 Score Reviewed/Action Taken: Yes JOI-7 AMB Questionnaire JOI-7 Date JOI - 7 assessed: 06/23/23 Feeling nervous, anxious, or on edge: 0 = Not at all Not being able to stop or control worryin = Not at all Worrying too much about different things: 0 = Not at all Trouble relaxin = Not at all Being so restless that it is hard to sit still: 0 = Not at all Becoming easily annoyed or irritable: 0 = Not at all Feeling afraid as if something awful might happen: 0 = Not at all Total JOI-7 score (0-4 normal; 5-9 mild; 10-14 moderate; 15-21 severe): 0 Source: Developed by Drs. Jasson Hernandez, Laura Telles, Carroll Gruber and colleagues, with an educational olvin from [employer]. Review of Systems Const Denies chills, Denies fatigue, Denies fever(s), Denies headache(s) and Denies malaise Eyes Denies blurry vision, Denies change in vision, Denies irritation and Denies itchy eyes ENT Denies dysphagia, Denies dizziness, Denies otalgia, Denies headache(s), Denies nasal congestion, Denies neck pain, Denies odynophagia, Denies sinus pain and Denies sore throat Card Denies chest pain, Denies rapid heart rate, Denies irregular heart rhythm, Denies palpitations and Denies dyspnea Resp Denies chest congestion, Denies cough, Denies dyspnea and Denies wheezing GI Denies abdominal pain, Denies bloating, Denies constipation, Denies dysphagia, Denies heartburn, Denies diarrhea, Denies nausea, Denies odynophagia and Denies vomiting Denies hematuria, Denies urinary frequency, Denies dysuria, Denies urinary incontinence and Denies urinary urgency Musc Denies back pain, Denies arthralgias, Denies joint swelling, Denies muscle weakness and Denies neck pain Skin/Breast Denies breast pain, Denies breast mass, Denies change in pigmentation, Denies lesions, Denies rash and Denies unusual bruising Neuro Denies dizziness, Denies headache(s) and Denies paresthesias Psych Denies anxiety and Denies depression Endo Denies fatigue and Denies palpitations Lewis/Lymph Denies easy bruising Aller/Immun Denies itchy eyes and Denies wheezing Physical exam (Primary Care) Vital Signs: Last Vital Signs Pulse 74 06/23/23 16:17 BP 110/78 06/23/23 16:17 Pulse Ox 99 06/23/23 16:17 Oxygen Delivery Method Room Air 06/23/23 16:17 BMI result Body Mass Index 23.5 Tobacco/Smoking Status: Tobacco use Status Tobacco use date assessed 06/23/23 06/23/23 16:19 Patient Tobacco Use Status Never used Tobacco 06/23/23 16:19 e-Cigarette/Vaping Use Never Used 06/23/23 16:19 PHQ-9: PHQ-9 Score PHQ-9: Total score 0 06/23/23 17:00 Depression Screening Interpretation: Negative Thrive Assessment: Date of Thrive Assessment Date Thrive assessed 06/23/23 06/23/23 16:19 Currently or been in a relationship where the following occur: no concerns reported Const General: no acute distress, alert and awake Orientation/consciousness: patient oriented x3 HENMT Head: Yes normocephalic and Yes atraumatic Ears: external ears normal, TM's normal bilaterally and EAC's normal General nose exam: No nasal discharge present Face and sinus: Yes normal facial exam and Yes sinuses nontender Teeth and gingiva: dentition normal Throat: Yes posterior oropharynx normal and Yes tonsils normal (no TP congestion) Eyes Eyelids: Yes eyelids normal Conjunctivae: conjunctivae normal Pupils: Equal, round and reactive pupils present EOM: EOMs intact bilaterally Neck Neck: Yes no lymphadenopathy and Yes supple Thyroid: Thyroid normal Resp Auscultation: clear to auscultation bilaterally, no rales and no wheezes Cardio Rate: regular rate Rhythm: regular rhythm Heart sounds: no murmurs GI Palpation (GI): Soft to palpation, nontender and No hepatosplenomegaly present Auscultation: normal bowel sounds General: Yes no CVA tenderness Back/Spine/Pelvis Back: no CVA tenderness Thoracic/Lumbar Spine: thoracic and lumbar spine normal to inspection Skin Lesions: no lesions Rashes: no rashes Neuro General: patient oriented x3, moves all extremities, no focal motor deficits and CN's II-XI intact bilaterally Cranial nerves: Yes Equal, round and reactive pupils present Cognition (Neuro): normal cognition Gait exam (Neuro): Normal gait present Extrem General: Yes no clubbing, cyanosis or edema Assessment and Plan Assessment & Plan (1) Annual physical exam: Code(s): Z00.00 - Encounter for general adult medical examination without abnormal findings Plan: Check labs - these have been previously ordered and she is instructed to try to get them done ANALILIA She is currently up-to-date with her cervical and breast cancer screenings (2) Iron deficiency anemia: Code(s): D50.9 - Iron deficiency anemia, unspecified Qualifiers: Iron deficiency anemia type: unspecified iron deficiency Qualified Code(s): D50.9 - Iron deficiency anemia, unspecified Plan: Continue Ferrous Sulfate 325 mg QD Will recheck her labs and CBC for follow up (3) Vitamin D deficiency: Code(s): E55.9 - Vitamin D deficiency, unspecified Plan: Continue Vitamin D3 2000 units QD (4) Asthma: Code(s): J45.909 - Unspecified asthma, uncomplicated Qualifiers: Asthma severity: mild Asthma persistence: intermittent Asthma complication type: uncomplicated Qualified Code(s): J45.20 - Mild intermittent asthma, uncomplicated Plan: States that her asthma has been stable/controlled and she has not had any asthma flare ups in a while now Plan Follow up in 6 months Coding Level of Care Code Est Pt Prev Care 40-64y(25915) Diagnoses Annual physical exam Z00.00 Iron deficiency anemia, unspecified iron deficiency anemia type D50.9 Iron deficiency anemia type: unspecified iron deficiency Vitamin D deficiency E55.9 Mild intermittent asthma without complication J45.20 Asthma severity: mild Asthma persistence: intermittent Asthma complication type: uncomplicated
[2023-06-23 16:17] VITALS: BP 110/78; PULSE 74; O2SAT 99; BMI 23.5
== END 2023-06-23 17:03 | disposition home or self-care (01) ==
PROVIDERS: PCP Internal Medicine; Visit Provider Internal Medicine
DX: Z00.00 Encounter for general adult medical examination without abnormal findings (principal); D50.9 Iron deficiency anemia, unspecified; E55.9 Vitamin D deficiency, unspecified; J45.20 Mild intermittent asthma, uncomplicated
CPT/HCPCS: 99396

== ENCOUNTER → 2024-04-27 09:30 | Outpatient (BNV) | payer SELFPAY | PROVIDERS: PCP Internal Medicine; Visit Provider Internal Medicine | DX: Z12.31 Encounter for screening mammogram for malignant neoplasm of breast (principal) | CPT/HCPCS: 77063; 77067 ==

== ENCOUNTER 2024-04-27 09:32 | Outpatient (REF) | payer SELFPAY | END 2024-04-27 09:33 | disposition home or self-care (01) | LOC: HO.MAMMO 09:32 | PROVIDERS: PCP Internal Medicine; Visit Provider Internal Medicine | DX: Z12.31 Encounter for screening mammogram for malignant neoplasm of breast (principal) | CPT/HCPCS: 77063; 77067 ==

== ENCOUNTER 2024-05-07 09:52 | Outpatient (AMB) | payer SELFPAY ==
[2024-05-07 10:12] VITALS: BP 100/76; PULSE 84; O2SAT 96; BMI 24.9
--- NOTE | 2024-05-07 10:12 | MHC.PC.OV ---
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 Accompanied by: Self / Same As Patient Allergies environmental allergies Allergy (Unknown, Verified 05/07/24 10:51) Unknown Seasonal Allergies Allergy (Unknown, Verified 05/07/24 10:51) Unknown Medication List - Last Reconciled 05/07/24 by Oscar Elizalde MD cholecalciferol (vitamin D3) 50 mcg PO DAILY 90 days ferrous sulfate 325 mg PO DAILY 90 days Tobacco use date assessed: 05/07/24 Dental Screening Dental Screen Date: 05/07/24 Did you have a dental visit in the last 12 months?: Yes Did you have a dental problem in the last 6 months where you did not have access to dental care?: No Was dental information given to patient?: Patient has dentist HPI 6 Month F/U HPI Details Patient comes in today for her follow up visit States that she feels okay She denies any headaches but reports (+) occasional dizziness Also relates (+) fatigue often lately She denies any recent cough/cold symptoms, sore throat or fever Denies any chest pains, no SOB No nausea/vomiting, no abdominal pain No change in bowel habits noted Needs her Vitamin D and iron tablets Rx refilled today PFSH Medical History Excessive daytime sleepiness Allergic rhinitis Vitamin D deficiency Asthma Surgical History History of incision and drainage History of wisdom tooth extraction Family History Father No problems noted. 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 1. Little interest or pleasure in doing things: not at all 2. Feeling down, depressed, or hopeless: not at all 3. Trouble falling or staying asleep, or sleeping too much: not at all 4. Feeling tired or having little energy: not at all 5. Poor appetite or overeating: not at all 6. Feeling bad about yourself - or that you are a failure or have let yourself or your family down: not at all 7. Trouble concentrating on things, such as reading the newspaper or watching television: not at all 8. Moving or speaking so slowly that other people could have noticed. Or the opposite - being so fidgety or restless that you have been moving around a lot more than usual: not at all 9. Thoughts that you would be better off or of hurting yourself in some way: not at all Total score: 0 Depression Screening Interpretation: Negative Depression Screening Done: Yes 45760 - PHQ-9 Billing: Yes Source: Developed by Drs. Jasson Hernandez, Laura Telles, Carroll Gruber and colleagues, with an educational olvin from [employer]. Thrive Questionnaire Date Thrive assessed: 05/07/24 I am a: Patient What is your living situation today?: I have a steady place to live Within the past 12 months, did the food you bought not last and you didn't have the money to get more?: Never true Within the past 12 months, did you worry whether your food would run out before you got money to buy more?: Never true Do you have trouble paying for medicines?: No Do you have trouble getting transportation to medical appointments?: No Do you have trouble paying your heating and electricity bill?: No Do you have trouble taking care of your child, family member or friend?: No Do you have trouble with day-to-day activities such as bathing, preparing meals, shopping, managing finances, etc.?: No Are you currently unemployed and looking for a job?: No Are you interested in more education?: No Please select the resources that you would like help with: None Currently or been in a relationship where the following occur: No concerns reported THRIVE Score: 0 AUDIT C Alcohol Use Questionnaire (AUDIT-C) 1. How often do you have a drink containing alcohol?: Never 3. How often do you have six or more drinks on one occasion?: Never Total Score: 0 Score Reviewed/Action Taken: Yes JOI-7 AMB Questionnaire JOI-7 Date JOI - 7 assessed: 05/07/24 Feeling nervous, anxious, or on edge: 0 = Not at all Not being able to stop or control worryin = Not at all Worrying too much about different things: 0 = Not at all Trouble relaxin = Not at all Being so restless that it is hard to sit still: 0 = Not at all Becoming easily annoyed or irritable: 0 = Not at all Feeling afraid as if something awful might happen: 0 = Not at all Total JOI-7 score (0-4 normal; 5-9 mild; 10-14 moderate; 15-21 severe): 0 Source: Developed by Drs. Jasson Hernandez, Laura Telles, Carroll Gruber and colleagues, with an educational olvin from [employer]. Review of Systems Const Denies chills, Reports fatigue (recently), Denies fever(s) and Denies headache(s) ENT Denies dysphagia, Reports dizziness (occasional), Denies otalgia, Denies headache(s), Denies nasal congestion, Denies neck pain, Denies odynophagia and Denies sore throat Card Denies chest pain, Denies irregular heart rhythm, Denies palpitations and Denies dyspnea Resp Denies chest congestion, Denies cough and Denies dyspnea GI Denies abdominal pain, Denies constipation, Denies dysphagia, Denies heartburn, Denies diarrhea, Denies nausea, Denies odynophagia and Denies vomiting Denies urinary frequency, Reports menorrhagia, Denies dysuria and Denies urinary urgency Musc Denies back pain, Denies arthralgias and Denies neck pain Skin/Breast Denies rash Neuro Reports dizziness (occasional), Denies headache(s) and Denies paresthesias Psych Denies anxiety and Denies depression Endo Reports fatigue (recently) and Denies palpitations Lewis/Lymph Denies easy bruising Physical exam (Primary Care) Vital Signs: Last Vital Signs Pulse 84 05/07/24 10:12 BP 100/76 05/07/24 10:12 Pulse Ox 96 05/07/24 10:12 Oxygen Delivery Method Room Air 05/07/24 10:12 BMI result Body Mass Index 24.9 Tobacco/Smoking Status: Tobacco use Status Tobacco use date assessed 05/07/24 05/07/24 10:18 Patient Tobacco Use Status Never used Tobacco 05/07/24 10:18 e-Cigarette/Vaping Use Never Used 05/07/24 10:18 PHQ-9: PHQ-9 Score PHQ-9: Total score 0 05/07/24 10:42 Depression Screening Interpretation: Negative Thrive Assessment: Date of Thrive Assessment Date Thrive assessed 05/07/24 05/07/24 10:18 Currently or been in a relationship where the following occur: No concerns reported Const General: no acute distress and alert HENMT Ears: TM's normal bilaterally and EAC's normal Throat: Yes posterior oropharynx normal and Yes tonsils normal (no TP congestion) Neck Neck: Yes no lymphadenopathy and Yes supple Thyroid: Thyroid normal Resp Auscultation: clear to auscultation bilaterally, no rales and no wheezes Cardio Rate: regular rate Rhythm: regular rhythm Heart sounds: no murmurs GI Palpation (GI): Soft to palpation and nontender Auscultation: normal bowel sounds General: Yes no CVA tenderness Back/Spine/Pelvis Back: no CVA tenderness Thoracic/Lumbar Spine: thoracic and lumbar spine normal to inspection Skin Rashes: no rashes Extrem General: Yes no clubbing, cyanosis or edema Coding Level of Care Code Est Pt Level 3 (14211) Diagnoses Iron deficiency anemia, unspecified iron deficiency anemia type D50.9 Iron deficiency anemia type: unspecified iron deficiency Vitamin D deficiency E55.9 Fatigue, unspecified type R53.83 Fatigue type: unspecified Mild intermittent asthma without complication J45.20 Asthma severity: mild Asthma persistence: intermittent Asthma complication type: uncomplicated Additional Codes PHQ-9 - 35177 - PHQ-9 Billing: Yes ([id number]) Assessment & Plan Assessment & Plan (1) Iron deficiency anemia: Code(s): D50.9 - Iron deficiency anemia, unspecified Category: Medical Qualifiers: Iron deficiency anemia type: unspecified iron deficiency Qualified Code(s): D50.9 - Iron deficiency anemia, unspecified Plan: Continue Ferrous Sulfate 325 mg QD - Rx refilled Will recheck her labs and CBC in a few weeks for follow up - is instructed to get her labs done just before she comes in for her annual physical exam in June 2024 (2) Vitamin D deficiency: Code(s): E55.9 - Vitamin D deficiency, unspecified Category: Medical Plan: Continue Vitamin D3 2000 units QD (3) Fatigue: Code(s): R53.83 - Other fatigue Category: Medical Qualifiers: Fatigue type: unspecified Qualified Code(s): R53.83 - Other fatigue Plan: She is advised that her recent fatigue may be due to anemia or vitamin D deficiency or both She was seen and evaluated for RONNY and was advised that she does not have the condition Will have her recheck her labs in a few weeks for follow up (4) Asthma: Code(s): J45.909 - Unspecified asthma, uncomplicated Category: Medical Qualifiers: Asthma severity: mild Asthma persistence: intermittent Asthma complication type: uncomplicated Qualified Code(s): J45.20 - Mild intermittent asthma, uncomplicated Plan: States that her asthma has been stable/controlled and she has not had any asthma flare ups in quite a while Plan To return as scheduled in June 2024 for her annual physical examination Orders: Orders Complete Blood Count Auto Diff 06/19/24 D64.9 - Anemia, unspecified, Z00.00 - Encounter for general adult medical examination without abnormal findings Comprehensive [place]. Panel Fast 06/19/24 E78.00 - Pure hypercholesterolemia, unspecified, Z00.00 - Encounter for general adult medical examination without abnormal findings Lipid Panel 06/19/24 E78.00 - Pure hypercholesterolemia, unspecified, Z00.00 - Encounter for general adult medical examination without abnormal findings UA CC w/rflx Micro + Cult 06/19/24 R30.0 - Dysuria, Z00.00 - Encounter for general adult medical examination without abnormal findings TSH reflex Free T4 06/19/24 E78.00 - Pure hypercholesterolemia, unspecified, Z00.00 - Encounter for general adult medical examination without abnormal findings Vitamin D 25-OH Total 06/19/24 E55.9 - Vitamin D deficiency, unspecified, Z00.00 - Encounter for general adult medical examination without abnormal findings IRON PROFILE 06/19/24 D50.9 - Iron deficiency anemia, unspecified, Z00.00 - Encounter for general adult medical examination without abnormal findings Medications: Refilled ferrous sulfate 325 mg PO DAILY 90 days 90 tabs 1RF cholecalciferol (vitamin D3) 50 mcg PO DAILY 90 days 90 caps 3RF E55.9 - Vitamin D deficiency, unspecified
== END 2024-05-07 10:45 | disposition home or self-care (01) ==
PROVIDERS: PCP Internal Medicine; Visit Provider Internal Medicine
DX: D50.9 Iron deficiency anemia, unspecified (principal); E55.9 Vitamin D deficiency, unspecified; R53.83 Other fatigue; J45.20 Mild intermittent asthma, uncomplicated

== ENCOUNTER → 2024-05-07 09:52 | Outpatient (BNVA) | payer SELFPAY | PROVIDERS: PCP Internal Medicine; Visit Provider Internal Medicine | DX: D50.9 Iron deficiency anemia, unspecified (principal); E55.9 Vitamin D deficiency, unspecified; R53.83 Other fatigue; J45.20 Mild intermittent asthma, uncomplicated; Z79.899 Other long term (current) drug therapy | CPT/HCPCS: 96127; 99212 ==

== ENCOUNTER 2024-06-21 12:22 | Outpatient (REF) | payer SELFPAY ==
[2024-06-21 13:21] LABS: Appearance Urine Clear; Color Urine Yellow; Glucose Urine UA Negative (Negative); Leukocyte Esterase Urine Negative (Negative); Nitrite Urine Negative (Negative); PH 5.5 (5.0-9.0); Specific Gravity - Urine 1.025 (1.005-1.025); Urine Blood Negative (Negative); Urine Ketones Negative (Negative); Urine Protein Negative (Neg-Trace)
[2024-06-21 13:25] LABS: MANUAL DIFF FLAG NO
[2024-06-21 13:37] LABS: Basophils Percent Auto 0.6 % (0-2); Eosinophils Percent Auto 0.8 % (0-4); Hematocrit 36.2 % (37.0-47.0); Hemoglobin 11.7 g/dl (12.0-16.0); Imm Gran Abs Auto 0.01 X10*3/uL (0.00-0.03); Imm Gran Pct Auto 0.2 % (0.0-0.4); Lymphocytes Absolute Auto 2.5 X10*3/uL (1.2-4.9); Lymphocytes Percent Auto 46.9 % (20-40); Mean Corpuscular HGB Conc 32.3 g/dl (31.0-35.0); Mean Corpuscular Hemoglobin 29.2 pg (27.0-33.0); Mean Corpuscular Volume 90.3 fL (80.0-98.0); Mean Platelet Volume 9.5 fL (9.4-12.3); Monocytes Absolute Auto 0.4 X10*3/uL (0.1-1.2); Monocytes Percent Auto 6.8 % (2-11); Neutrophils Absolute Auto 2.4 x10*3/uL (2.0-8.3); Neutrophils Percent Auto 44.7 % (45-73); Platelet Count 270 X10*3/uL (160-400); Red Blood Count 4.01 X10*6/uL (4.20-5.50); Red Cell Distribution Width 13.8 % (11.0-16.0); White Blood Count 5.3 X10*3/uL (4.8-10.8)
[2024-06-21 14:27] LABS: Alanine Aminotransferase 7 U/L (0-31); Albumin Level 3.7 g/dL (3.5-5.0); Anion Gap 12 (12-20); Aspartate Amino Transferase 24 U/L (5-31); Bilirubin Total 0.4 mg/dL (0.0-1.0); Blood Urea Nitrogen 9 mg/dL (9-16); Calcium 9.4 mg/dL (8.4-10.2); Carbon Dioxide 23 mmol/L (22-29); Chloride 108 mmol/L (96-108); Cholesterol 193 mg/dL (<200); Estimated Glomerular Filt Rate > 60; Glucose Fasting 85 mg/dL (60-99); HDL Cholesterol 70 mg/dL (>40); Iron 53 mcg/dL (30-160); LDL Cholesterol Calculated 116 mg/dL (<100); Percent Iron Saturation 21 % (15-50); Potassium 3.9 mmol/L (3.3-5.1); Sodium 139 mmol/L (135-145); Total Iron Binding Capacity 253 mcg/dL (228-428); Total Protein 7.8 g/dL (6.5-8.0); Triglycerides 37 mg/dL (<150); Unsaturated Iron Binding 200 ug/dL
[2024-06-21 14:35] LABS: TSH reflex Free T4 0.44 uIU/mL (0.32-4.0); Vitamin D 25-OH Total 38.8 ng/mL (>30)
[2024-06-21 17:11] LABS: Alkaline Phosphatase 66 U/L (39-117)
== END 2024-06-21 12:23 | disposition home or self-care (01) ==
LOC: HO.HMGCLDS 12:22
PROVIDERS: PCP Internal Medicine; Visit Provider Internal Medicine
DX: Z00.00 Encounter for general adult medical examination without abnormal findings (principal); D64.9 Anemia, unspecified; E78.00 Pure hypercholesterolemia, unspecified; R30.0 Dysuria; E55.9 Vitamin D deficiency, unspecified; D50.9 Iron deficiency anemia, unspecified
CPT/HCPCS: 36415; 80053; 80061; 81003; 82306; 83540; 84443; 85025